=== PATIENT | male | born 1950 | race Caucasian/White ===

== ENCOUNTER 2016-11-21 05:39 | Inpatient (IN) | payer BC ==
[~2016-11-21] VITALS: Ht 180.3 cm; Wt 104.1 kg
[2016-11-21] VITALS (28 sets, daily range): BP systolic 95–128; BP diastolic 59–77; PULSE 77–97; RESP 13–20; Ht 180.3 cm; Wt 104.1 kg
[2016-11-21] MEDS ORDERED: FINA5TAB4 PO (06:36)
[2016-11-21] MEDS ORDERED: HYD25 PO (06:36)
[2016-11-21] MEDS ORDERED: L-THYROXINE ORAL (06:36)
[2016-11-21] MEDS ORDERED: TAMS0.4C2 PO (06:36)
[2016-11-21] MEDS ORDERED: ATOR40TA68 PO (06:36)
--- NOTE | 2016-11-21 06:54 | HPN ---
Date/Time of Note Date/Time of Note DATE: 11/21/16 TIME: 06:54 Interval H&P Admission Note Pt. seen H&P reviewed: No system changes KEESHA JOHNSON MD Nov 21, 2016 06:54
[2016-11-21] MEDS ORDERED: EPHEDrine SULFATE 50 MG/5 ML SYG ONE (07:00)
[2016-11-21] MEDS ORDERED: BUPIVACAINE 0.25%/EPI (SDV) 30 ML INJ ONE (07:04)
[2016-11-21] MEDS ORDERED: GELATIN SIZE 100 SPONGE ONE (07:04)
[2016-11-21] MEDS ORDERED: THROMBIN 5000 UNIT VIAL ONE (07:05)
[2016-11-21] MEDS ORDERED: POLYMYXIN/BACITRACIN 1L IRRIG ONE (07:07)
[2016-11-21] MEDS ORDERED: LIDOCAINE 1% (MDV) 20 ML INJ ONE (07:28)
[2016-11-21] MEDS ORDERED: MIDAZOLAM 1 MG/ML 2 ML INJ ONE (07:28)
[2016-11-21] MEDS ORDERED: PROPOFOL 20 ML ONE (07:28)
[2016-11-21] MEDS ORDERED: SUCCINYLCHOLINE CHLORIDE 100 MG/5 ML SYG IV ONE (07:28)
[2016-11-21] MEDS ORDERED: PHENYLephrine (100 MCG/ML) 5ML SYG ONE ×2 (07:48→08:31)
[2016-11-21] MEDS ORDERED: ROCURONIUM 50 MG INJ ONE ×2 (08:04→09:27)
[2016-11-21] MEDS ORDERED: CEFAZOLIN 1 GM INJ ONE ×2 (08:06→11:17)
[2016-11-21] MEDS ORDERED: ONDANSETRON 4 MG INJ ONE (08:17)
[2016-11-21] MEDS ORDERED: ACETAMINOPHEN 1000MG/100ML IV 100 ML ONE (08:17)
[2016-11-21] MEDS ORDERED: POLYMYXIN/BACITRACIN 1L IRRIG IRR ONE (08:20)
[2016-11-21] MEDS ORDERED: BUPIVACAINE 0.25%/EPI (SDV) 30 ML INJ INJ ONE (08:20)
[2016-11-21] MEDS ORDERED: DEXAMETHASONE 4 MG/ML 1 ML INJ ONE (08:25)
[2016-11-21] MEDS ORDERED: FAMOTIDINE 20 MG INJ ONE (08:25)
[2016-11-21] MEDS ORDERED: HEMOSTATIC MATRIX SYG ZFS ONE (09:15)
[2016-11-21] MEDS ORDERED: BETAMET NA PHOS/AC(6 MG/ML) 5ML INJ ONE (09:47)
[2016-11-21] MEDS ORDERED: FENTAnyl 50 MCG/ML VIAL ONE (10:18)
[2016-11-21] MEDS ORDERED: hydrALAzine 20 MG INJ ONE (10:32)
[2016-11-21] MEDS ORDERED: GELATIN SIZE 100 SPONGE TOP ONE (11:12)
[2016-11-21] MEDS ORDERED: THROMBIN 5000 UNIT VIAL TOP ONE ×2 (11:12)
[2016-11-21] MEDS ORDERED: SUGAMMADEX SODIUM 200 MG/2 ML VIAL IV ONE (11:24)
--- NOTE | 2016-11-21 11:56 | OPR ---
Date/Time of Note Date/Time of Note DATE: 11/21/16 TIME: 11:44 Operative Report Free Text/Dictation DATE OF OPERATION: 11/21/2016 PREOPERATIVE DIAGNOSES: L3-4, L4-5 spinal stenosis with neurogenic claudication POSTOPERATIVE DIAGNOSES: L3-4, L4-5 spinal stenosis with neurogenic claudication OPERATION PERFORMED: 1. L3-4 laminectomy, medial facetectomy, and foraminotomy 2. L4-5 partial laminectomy, medial facetectomy, and foraminotomy SURGEON: Keesha Johnson MD ANESTHESIA: General endotracheal ESTIMATED BLOOD LOSS: 100 mL SURGICAL INDICATION: The patient is a 66 year-old male who presents with an increasing history of bilateral (left greater than right) lower extremity pain. The patient was unable to ambulate significant distances secondary to their pain. The patient had failed conservative treatment. Risks, benefits, and alternatives to a decompressive procedure including but not exclusive of risks of bleeding, infection, nerve injury, cauda equina syndrome, iatrogenic instability, dural tear, myocardial infarction, stroke, pulmonary embolism were explained to the patient, and she wished to proceed. DESCRIPTION OF TECHNIQUE: The patient was identified in the preoperative area and taken to the operating room. Rapid induction of general endotracheal anesthesia was performed. Patient was given 2 g of cefazolin for prophylaxis. The patient was then placed in the prone position on the Jay table on a Minh frame with all bony prominences well padded. The back was prepped and draped in usual sterile manner. Using a spinal needle and intraoperative fluoroscopy, the L4-5 level was clearly identified. The skin was injected using 0.25% Marcaine with epinephrine. Longitudinal midline incision was then created using a 10 blade. Further dissection through soft tissue was performed using electrocautery down to the spinous processes bilaterally. Dissection was taken down the bilateral lamina and over the facet joint capsule. A self-retaining retractor was applied. Again, intraoperative fluoroscopy confirmed the level. The microscope was brought into use for microdissection. The high-speed bur was used to thin the L4 lamina and a small portion of the medila facet. Kerrison rongeurs were then used to resect the lamina bilaterally, and a small portion of the medial facet and the bone overlying the foramen. Ligamentum flavum was also resected using the Kerrison rongeurs. Care was taken to protect the thecal sac throughout the decompressive procedure. Palpation with a ball-tip probe did not reveal any further stenosis in the central, subarticular, or foraminal areas. The exiting L4 nerve root and traversing L5 nerve roots were both directly visualized and noted to be decompressed. The cephalad and caudad extent of the decompression were also confirmed using ball-tip probes and intraoperative fluoroscopy. In similar fashion, a partial bilateral laminectomy, medial facetectomy and foraminotomy was performed at the L3-4 level. The level was re-identified with fluoroscopy after we placed our retractors at the L3-4 interspace. The high- speed bur was used to thin the L3 lamina and a small portion of the medila facet. Kerrison rongeurs were then used to resect the lamina bilaterally, and a small portion of the medial facet and the bone overlying the foramen. Ligamentum flavum was also resected using the Kerrison rongeurs. Care was taken to protect the thecal sac throughout the decompressive procedure. Palpation with a ball-tip probe did not reveal any further stenosis in the central, subarticular, or foraminal areas. The exiting L3 nerve root and traversing L4 nerve roots were both directly visualized and noted to be decompressed. The cephalad and caudad extent of the decompression were also confirmed using ball- tip probes and intraoperative fluoroscopy. The wound was irrigated copiously using normal saline. Meticulous attention was paid toward hemostasis using bipolar cautery, FloSeal, Gelfoam and thrombin. Care was taken to remove all FloSeal and Gelfoam and thrombin prior to wound closure. The fascia was then closed using 1 Vicryl in interrupted fashion. Subcutaneous tissue was closed using 2-0 Vicryl in interrupted fashion. Skin was closed using a running 4-0 Monocryl stitch. The wound was dressed using Dermabond, sterile gauze and Tegaderm. The patient was returned to the supine position. They were extubated immediately postoperatively and taken to the recovery room in stable condition. Complications: None Procedure Date: Nov 21, 2016 Anesthesia: general Estimated Blood Loss: 100 - 150 ml's Complications: None Pt Condition Post Procedure: stable Disposition: PACU KEESHA JOHNSON MD Nov 21, 2016 11:56
[2016-11-21] MEDS ORDERED: ONDANSETRON 4 MG INJ IV PRN ×2 (12:00→12:30)
[2016-11-21] MEDS ORDERED: NACL 0.9% 3 ML SYG IV SCH (12:00)
[2016-11-21] MEDS ORDERED: HYDROmorphONE 0.2 MG/ML PCA IV SCH (12:00)
[2016-11-21] MEDS ORDERED: NALOXONE (0.4 MG/ML) INJ IV PRN (12:00)
[2016-11-21] MEDS ORDERED: BETHANECHOL 25 MG TAB PO PRN (12:00)
[2016-11-21] MEDS ORDERED: HYDROCODONE/APAP (5/325) TAB PO PRN (12:00)
[2016-11-21] MEDS ORDERED: PROCHLORPERAZINE 10 MG TAB PO PRN (12:00)
[2016-11-21] MEDS ORDERED: MEPERIDINE 25 MG INJ IV PRN (12:30)
[2016-11-21] MEDS ORDERED: LABETALOL HCL 20MG INJ IV PRN (12:30)
[2016-11-21] MEDS ORDERED: DIPHENHYDRAMINE 50 MG INJ IV PRN (12:30)
[2016-11-21] MEDS ORDERED: hydrALAzine 20 MG INJ IV PRN (12:30)
[2016-11-21] MEDS ORDERED: HYDROmorphONE (0.2 MG/ML) 10ML SYG IV PRN ×2 (12:30)
[2016-11-21] MEDS: CEFAZOLIN 1 GM/50 ML (PMX) 50 ML IVPB SCH ×3 (12:50→23:44)
--- NOTE | 2016-11-21 13:12 | CONS ---
Date/Time of Note Date/Time of Note DATE: 11/21/16 TIME: 13:07 Assessment/Plan Assessment/Plan Problems: (1) S/P lumbar laminectomy Status: Acute Comment: He is immediately postop and appears to be doing well. We will continue his care he will be moved upstairs will start the process for formal rehabilitation evaluation and recovery at the present time normal course (2) Vitamin D deficiency Status: Chronic Comment: Low-dose replacement there (3) Hyperlipidemia Status: Chronic Comment: Continue statin therapy Qualifiers: Qualified Code: E78.00 - Pure hypercholesterolemia (4) Hypertension, essential, benign Status: Chronic Comment: Further on hold the low-dose hydrochlorothiazide may actually use different agent depending upon how he does this will be observed (5) Degenerative lumbar spinal stenosis Status: Chronic Comment: He is postop and stable (6) Hypothyroidism Status: Chronic Comment: Continue replacement therapy Qualifiers: Qualified Code: E03.9 - Acquired hypothyroidism (7) BPH (benign prostatic hyperplasia) Status: Chronic Comment: Continue medical management; check postvoid residual in the morning after he is recovered from the anesthesia Qualifiers: Qualified Code: N40.1 - Benign prostatic hyperplasia with lower urinary tract symptoms, unspecified morphology Consultation Date/Type/Reason Admit Date/Time Nov 21, 2016 at 05:39 Date of Consultation: Nov 21, 2016 Type of Consultation: Internal medicine Reason for Consultation Postoperative assistance with management of medical issues BPH; hypertension; hyperlipidemia; hypothyroidism Referring Provider: KEESHA JOHNSON MD Hx of Present Illness Charming 66-year-old gentleman in recovery room postoperatively. At this time reports his legs are feeling better. Constitutional: no complaints (Denies fevers chills or sweats) Eyes: no complaints Respiratory: no complaints (No shortness of breath no cough no pleuritic no pleuritic chest pain) Cardiovascular: no complaints (No chest pain no palpitations no PND no orthopnea) Gastrointestinal: no complaints Genitourinary: no complaints Musculoskeletal: back pain (Postoperative) Skin: no complaints Endocrine: no complaints Past Medical History Hypothyroidism; BPH; hypertension; hyperlipidemia; usual childhood diseases Past Surgical History Immediately post lumbar laminectomy; status post right shoulder surgery; status post inguinal hernia repair Family History Significant Family History: hypertension Social History Alcohol Use: rarely Smoking Status: Never smoker Drug Use: none Other Social History Pleasant gentleman lives with family 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 [employer] Exam/Review of Systems Vital Signs Vitals Vital Signs Date Time Temp Pulse Resp B/P Pulse Ox O2 Delivery O2 Flow Rate FiO2 11/21/16 12:38 98.6 11/21/16 06:21 77 18 112/74 97 Room Air Exam Constitutional: alert, oriented Neck: non-tender, supple Respiratory: clear to auscultation, normal air movement Cardiovascular: nl pulses, regular rate and rhythm Gastrointestinal: nl liver, spleen, non-tender, soft Extremities: normal pulses, other (Moving both lower extremities) Neurological: DOCUMENTATION WRITER II-XII intact, nl mental status, nl speech, nl strength Medications Medications Current Medications Acetaminophen/ Hydrocodone Bitart ([place] (5/325)) 1 tab Q4H PRN PO PAIN LEVEL 1 -5; Start 11/21/16 at 12:00 Acetaminophen/ Hydrocodone Bitart 2 tab 2 tab Q4H PRN PO PAIN LEVEL 6-10; Start 11/21/16 at 12:00 Cefazolin Sodium (Ancef 1 Gm/50 ml (Pmx)) 50 ml @ 100 mls/hr Q6 IVPB Last administered on 11/21/16 12:50; Admin Dose 100 MLS/HR; Start 11/21/16 at 12:00 ; Stop 11/22/16 at 06:29 Prochlorperazine (Compazine) 10 mg Q4H PRN PO NAUSEA AND/OR VOMITING; Start at 12:00 Ondansetron HCl (Zofran Inj) 4 mg Q6H PRN IV NAUSEA AND/OR VOMITING; Start at 12:00 Bethanechol Chloride (Urecholine) 25 mg PRN PRN PO UNABLE TO VOID; Start at 12:00 Hydromorphone HCl (Dilaudid COOKER CLEANER) Q4PCA IV Last administered on 11/21/16 12:53 ; Admin Dose 6 MG; Start 11/21/16 at 12:00 Naloxone HCl (Narcan) 0.2 mg Q2M PRN IV RR 8 BREATHS/MIN OR LESS; Start at 12:00 YE GREGORY MD Nov 21, 2016 13:12
[2016-11-21] MEDS: THIAMINE 100 MG TAB PO SCH (15:59)
--- NOTE | 2016-11-21 17:32 | RADRPT ---
PROCEDURE: Intraoperative fluoroscopy. CLINICAL INDICATION: Intraoperative fluoroscopy during L3 - L5 microdiskectomy. TECHNIQUE: 4 spot intraoperative fluoroscopic images were provided. The images were reviewed on a high-resolution PACS workstation. COMPARISON: None available FINDINGS: Multiple spot intraoperative fluoroscopic views were provided during microdiskectomy. The images de monstrate metallic probe at the level L4 and L5. Subsequent images demonstrate postoperative change s at the level of L3-4 and L4-5. The total fluoroscopy time was 17.7 seconds. IMPRESSION: 1. Multiple spot intraoperative fluoroscopic views during L3 - L5 microdiskectomy were provided. 2. Please see operative report of the same day for further information. RPTAT: HGAS .Darío Parker MD, MD Date Time Electronically viewed and signed by .Darío Parker MD, on 11/21/2016 17:31 .S/
[2016-11-21] MEDS ORDERED: TAMSULOSIN (SR) 0.4 MG CAP PO ONE (18:30)
[2016-11-21] MEDS ORDERED: TAMSULOSIN (SR) 0.4 MG CAP PO SCH (21:00)
[2016-11-21] MEDS: ATORVASTATIN 40 MG TAB PO SCH (21:07)
[2016-11-22 00:07] VITALS: BP 123/73; RESP 20
[2016-11-22] MEDS: LEVOTHYROXINE 100 MCG TAB PO SCH (05:41)
[2016-11-22] MEDS: CEFAZOLIN 1 GM/50 ML (PMX) 50 ML IVPB SCH (05:42)
[2016-11-22 06:08] LABS: HEMATOCRIT 40.6 % (42.0-52.0); HEMOGLOBIN 13.6 g/dl (14.0-18.0)
[2016-11-22 06:36] VITALS: BP 116/67; PULSE 87; RESP 18
[2016-11-22 06:43] LABS: CALCIUM 8.6 mg/dl (8.4-10.2); CREATININE 0.84 mg/dl (0.61-1.24); POTASSIUM 3.7 mmol/L (3.5-5.1)
[2016-11-22 07:29] VITALS: BP 126/72; RESP 19
--- NOTE | 2016-11-22 08:24 | PN ---
Date/Time of Note Date/Time of Note DATE: 11/22/16 TIME: 08:22 Assessment/Plan VTE Prophylaxis VTE Prophylaxis Intervention: SCD's Lines/Catheters IV C[facility]ter Type [facility]from [facility] Peripheral IV Assessment/Plan Chief Complaint/Hosp Course [place] 66-year-old gentleman. Problems: (1) S/P lumbar laminectomy Status: Acute Comment: It appears he is doing well postoperatively without of evidence of apparent complications or untoward effects. Continue observation rehabilitative therapy with physical therapy. (2) Vitamin D deficiency Status: Chronic Comment: Noted he should be on 1000 units a day (3) Hyperlipidemia Status: Chronic Comment: Continue treatment prescriptions have been written; no untoward effects Qualifiers: Hyperlipidemia type: pure hypercholesterolemia Qualified Code: E78.00 - Pure hypercholesterolemia (4) Hypertension, essential, benign Status: Chronic Comment: Adequate control (5) Hypothyroidism Status: Chronic Comment: Continue replacement therapy Qualifiers: Hypothyroidism type: acquired Qualified Code: E03.9 - Acquired hypothyroidism (6) BPH (benign prostatic hyperplasia) Status: Chronic Comment: He is on his medications for this his Shoemaker catheter is out pending as the bladder scan that was ordered yesterday Qualifiers: Prostatic enlargement morphology: unspecified morphology Lower urinary tract symptom presence: symptoms present Qualified Code: N40.1 - Benign prostatic hyperplasia with lower urinary tract symptoms, unspecified morphology Subjective 24 Hr Interval Summary Free Text/Dictation Patient reports discomfort at the incision site but otherwise has no specific offered complaints. Constitutional: febrile Eyes: no complaints Respiratory: no complaints Cardiovascular: no complaints Gastrointestinal: no complaints Genitourinary: no complaints Musculoskeletal: back pain Exam/Review of Systems Vital Signs Vitals Vital Signs Date Time Temp Pulse Resp B/P Pulse Ox O2 Delivery O2 Flow Rate FiO2 11/22/16 07:29 97.0 80 19 126/72 96 11/22/16 06:36 Nasal Cannula 2.0 Intake and Output 11/21/16 11/21/16 11/22/16 15:00 23:00 07:00 Intake Total 2110 ml 50 ml 850 ml Output Total 1055 ml 70 ml 1300 ml Balance 1055 ml -20 ml -450 ml Exam Constitutional: alert, oriented Neck: non-tender, supple Respiratory: clear to auscultation, normal air movement Cardiovascular: nl pulses, regular rate and rhythm Gastrointestinal: nl liver, spleen, non-tender, soft Results Result Diagram: 11/22/16 0440 11/22/16 0440 Results 24 hrs Laboratory Tests Test 11/22/16 04:40 11/22/16 05:54 Hemoglobin 13.6 L Hematocrit 40.6 L Sodium Level 136 Potassium Level 3.7 Chloride Level 100 Carbon Dioxide Level 28 Anion Gap 12 Blood Urea Nitrogen 19 Creatinine 0.84 Glucose Level 118 Calcium Level 8.6 Lab Scanned Report REFERENCE LAB Medications Medications Current Medications Acetaminophen/ Hydrocodone Bitart ([place] (5/325)) 1 tab Q4H PRN PO PAIN LEVEL 1 -5; Start 11/21/16 at 12:00 Acetaminophen/ Hydrocodone Bitart ([place] (5/325)) 2 tab Q4H PRN PO PAIN LEVEL 6 -10; Start 11/21/16 at 12:00 Prochlorperazine (Compazine) 10 mg Q4H PRN PO NAUSEA AND/OR VOMITING; Start at 12:00 Ondansetron HCl (Zofran Inj) 4 mg Q6H PRN IV NAUSEA AND/OR VOMITING; Start at 12:00 Bethanechol Chloride (Urecholine) 25 mg PRN PRN PO UNABLE TO VOID; Start at 12:00 Naloxone HCl (Narcan) 0.2 mg Q2M PRN IV RR 8 BREATHS/MIN OR LESS; Start at 12:00 Atorvastatin Calcium (Lipitor) 20 mg QHS PO Last administered on 11/21/16 21: 07; Admin Dose 20 MG; Start 11/21/16 at 21:00 Finasteride (Proscar) 5 mg DAILY PO ; Start 11/22/16 at 09:00 Levothyroxine Sodium (Synthroid) 100 mcg DAILY@06 PO Last administered on 05:41; Admin Dose 100 MCG; Start 11/22/16 at 06:00 Thiamine HCl (Vitamin B1) 100 mg DAILY PO Last administered on 11/21/16 15:59 ; Admin Dose 100 MG; Start 11/21/16 at 13:30; Stop 11/24/16 at 13:29 Tamsulosin HCl (Flomax) 0.4 mg HS PO ; Start 11/22/16 at 21:00 YE GREGORY MD Nov 22, 2016 08:24
[2016-11-22] MEDS: THIAMINE 100 MG TAB PO SCH (09:44)
[2016-11-22] MEDS: FINASTERIDE 5 MG TAB PO SCH (09:45)
[2016-11-22] MEDS: HYDROCODONE/APAP (5/325) TAB PO PRN ×2 (10:20→14:12)
[2016-11-22] MEDS ORDERED: HYDROmorphONE 1 MG/ML SYG IV PRN (14:00)
[2016-11-22 14:16] VITALS: BP 121/72; RESP 19
[2016-11-22 16:58] VITALS: BP 120/75; PULSE 86; RESP 20
[2016-11-22 19:56] VITALS: BP 109/70; RESP 18
[2016-11-22] MEDS: ATORVASTATIN 40 MG TAB PO SCH (20:44)
[2016-11-22] MEDS ORDERED: TAMSULOSIN (SR) 0.4 MG CAP PO SCH (21:00)
[2016-11-23] MEDS: LEVOTHYROXINE 100 MCG TAB PO SCH (06:10)
[2016-11-23 07:23] VITALS: BP 137/83; RESP 19
--- NOTE | 2016-11-23 07:58 | PDOCDIS ---
Discharge Instructions CONDITION Patient Condition: Good HOME CARE INSTRUCTIONS: Diet Instructions: RegularSpecial Diet: REGULAR ACTIVITY: Activity Restrictions: Avoid heavy lifting Bathing Restrictions: Shower FOLLOW UP/APPOINTMENTS Follow-up Plan Follow-up with Dr. Johnson in 2 weeks KEESHA JOHNSON MD Nov 23, 2016 07:58
--- NOTE | 2016-11-23 08:11 | CONS ---
Date/Time of Note Date/Time of Note DATE: 11/23/16 TIME: 08:08 Assessment/Plan Assessment/Plan Chief Complaint/Hosp Course Santa 66-year-old gentleman. Problems: (1) BPH (benign prostatic hyperplasia) Status: Chronic Comment: Adequate control and no post operative issues Qualifiers: Prostatic enlargement morphology: unspecified morphology Lower urinary tract symptom presence: symptoms present Qualified Code: N40.1 - Benign prostatic hyperplasia with lower urinary tract symptoms, unspecified morphology (2) Hypothyroidism Status: Chronic Comment: Continue replacement Qualifiers: Hypothyroidism type: acquired Qualified Code: E03.9 - Acquired hypothyroidism (3) S/P lumbar laminectomy Status: Acute Comment: Good post oiperative course and ready for discharge with outpatient recovery (4) Vitamin D deficiency Status: Chronic Comment: noted (5) Hyperlipidemia Status: Chronic Comment: on statin therapy Qualifiers: Hyperlipidemia type: pure hypercholesterolemia Qualified Code: E78.00 - Pure hypercholesterolemia (6) Hypertension, essential, benign Status: Chronic Comment: controlled Consultation Date/Type/Reason Admit Date/Time Nov 21, 2016 at 05:39 Initial Consult Date 11/21/16 Type of Consultation: Internal medicine Referring Provider: KEESHA JOHNSON MD 24 HR Interval Summary Free Text/Dictation [place] sitting in chair Constitutional: no complaints Detailed Summary Respiratory: no complaints Cardiovascular: no complaints Gastrointestinal: no complaints Exam/Review of Systems Vital Signs Vitals Vital Signs Date Time Temp Pulse Resp B/P Pulse Ox O2 Delivery O2 Flow Rate FiO2 11/23/16 07:23 98.0 62 19 137/83 98 11/22/16 21:00 Nasal Cannula 2.0 Intake and Output 11/22/16 11/22/16 11/23/16 15:00 23:00 07:00 Intake Total 1000 ml 500 ml Output Total 60 ml 1090 ml 800 ml Balance -60 ml -90 ml -300 ml Exam Constitutional: alert, oriented Neck: non-tender, supple Respiratory: clear to auscultation, normal air movement Cardiovascular: nl pulses, regular rate and rhythm Musculoskeletal: nl extremities to inspection, nl gait and stance Results Result Diagram: 11/22/1643911/22/16439 Medications Medications Current Medications Acetaminophen/ Hydrocodone Bitart ([place] (5/325)) 1 tab Q4H PRN PO PAIN LEVEL 1 -5 Last administered on 11/22/16 14:12; Admin Dose 1 TAB; Start 11/21/16 at 12: 00 Acetaminophen/ Hydrocodone Bitart ([place] (5/325)) 2 tab Q4H PRN PO PAIN LEVEL 6 -10 Last administered on 11/22/16 20:44; Admin Dose 2 TAB; Start 11/21/16 at 12 :00 Prochlorperazine (Compazine) 10 mg Q4H PRN PO NAUSEA AND/OR VOMITING; Start at 12:00 Ondansetron HCl (Zofran Inj) 4 mg Q6H PRN IV NAUSEA AND/OR VOMITING; Start at 12:00 Bethanechol Chloride (Urecholine) 25 mg PRN PRN PO UNABLE TO VOID; Start at 12:00 Naloxone HCl (Narcan) 0.2 mg Q2M PRN IV RR 8 BREATHS/MIN OR LESS; Start at 12:00 Atorvastatin Calcium (Lipitor) 20 mg QHS PO Last administered on 11/22/16 20: 44; Admin Dose 20 MG; Start 11/21/16 at 21:00 Finasteride (Proscar) 5 mg DAILY PO Last administered on 11/22/16 09:45; Admin Dose 5 MG; Start 11/22/16 at 09:00 Levothyroxine Sodium (Synthroid) 100 mcg DAILY@06 PO Last administered on 06:10; Admin Dose 100 MCG; Start 11/22/16 at 06:00 Thiamine HCl (Vitamin B1) 100 mg DAILY PO Last administered on 11/22/16 09:44 ; Admin Dose 100 MG; Start 11/21/16 at 13:30; Stop 11/24/16 at 13:29 Tamsulosin HCl (Flomax) 0.4 mg HS PO Last administered on 11/22/16 20:45; Admin Dose 0.4 MG; Start 11/22/16 at 21:00 Hydromorphone HCl (Dilaudid) 1 mg Q4H PRN IV PAIN; Start 11/22/16 at 14:00 YE GREGORY MD Nov 23, 2016 08:11
[2016-11-23] MEDS: FINASTERIDE 5 MG TAB PO SCH (08:44)
[2016-11-23] MEDS: THIAMINE 100 MG TAB PO SCH (08:44)
--- NOTE | 2016-11-23 14:31 | DS ---
DATE OF ADMISSION: 11/21/2016 DATE OF DISCHARGE: 11/23/2016 DIAGNOSIS ON ADMISSION: Severe L3-L4 and L4-L5 spinal stenosis with neurogenic claudication. DISCHARGE DIAGNOSIS: Severe L3-L4 and L4-L5 spinal stenosis with neurogenic claudication. HOSPITAL COURSE: The patient is a pleasant 66-year-old male who presents with a several-month histo ry of left greater than right-sided leg pain, which is worse with ambulation and relieved with rest. His pain failed to improve with a conservative course of treatment. A thorough discussion regardi ng surgical management was discussed with the patient. On 11/21/2016 the patient underwent bilatera l L3-L4 and L4-L5 decompression procedure. His hospital course was uncomplicated. Postoperative da y zero he ambulated well with physical therapy. He was cleared by physical therapy. His pain was i nitially controlled with a PRODUCTIVITY ENGINEER. On the day of discharge he no longer required IV pain medications f or pain control. His pain was under good control with p.o. Lefor. DIET AT DISCHARGE: Regular. ACTIVITY LIMITATIONS: The patient was told to avoid any heavy lifting of greater than 20 pounds. H e was told to avoid any excessive twisting or bending. MEDICATIONS AT DISCHARGE: The patient was given Lefor 5/325 mg p.o. q.4-6h. p.r.n. pain. He was told that he may resume his regular outpatient medications. FOLLOWUP APPOINTMENTS: The patient will follow up in our office in 2 weeks for repeat evaluation. He was told that if he h ad any issues with his drainage, any weakness, any persistent numbness, or issues with bowel or blad james control, to call our office right away, or the emergency room. Dictated By: KEESHA GROVES/NALINI Conf#: [id number] DID#: [id number]
== END 2016-11-23 12:15 | disposition home or self-care (01) | DRG 517 ==
LOC: REC 05:39 → MS1 15:30
PROVIDERS: ADMIT Orthopaedic Surgery; ATTEND Orthopaedic Surgery
PROC: 01NB0ZZ Release Lumbar Nerve, Open Approach (ICD-10-PCS; principal; 2016-11-21 07:30)
DX: M48.06 Spinal stenosis, lumbar region (principal); E55.9 Vitamin D deficiency, unspecified; I10 Essential (primary) hypertension; E78.5 Hyperlipidemia, unspecified; E03.9 Hypothyroidism, unspecified; N40.1 Benign prostatic hyperplasia with lower urinary tract symptoms
CPT/HCPCS: 72110; 80048; 85014; 85018; 86850; 86900; 86901; 87086; 97116; 97162; 97530; J0131; J0360; J0690; J0702; J1100; J1170; J2250; J2370; J2405; J3010; J7999